=== PATIENT | male | born 1995 | race Caucasian/White ===

== ENCOUNTER 2023-06-13 14:33 | Emergency (ER) | payer BC, SELFPAY ==
--- NOTE | ~2023-06-13 | XR_ITS ---
[id number] DATE: 06/13/2023 15:13 INDICATION: Fall. Posterior lateral right rib pain TECHNIQUE: PA chest. 2 additional views of the right wrist. COMPARISON: None FINDINGS: Normal heart size. No hilar or mediastinal enlargement. No pulmonary infiltrate or consolid ation, pleural effusion or pulmonary vascular congestion or pneumothorax. No right rib fracture or tariq ne destruction is evident. IMPRESSION: Negative Reviewed, dictated and finalized at [facility]. Reviewed, dictated and finalized at [facility]. IMPRESSION: Negative
[2023-06-13 14:46] VITALS: BP 136/87; PULSE 89; RESP 16; TEMP 36.9; O2SAT 97
--- NOTE | 2023-06-13 14:47 | ED.UPPEXIN ---
HPI - Extremity Injury (Upper) General Chief Complaint: Fall Stated Complaint: fall,landed on rt arm Time Seen by Provider: 06/13/23 15:02 Source: patient and RN notes reviewed Mode of arrival: ambulatory Limitations: no limitations History of Present Illness HPI narrative: 28-year-old male presents with concern for right rib pain. He reports he fell 2 weeks ago and had some pain at that time. Reports that was tolerable. Reports a few days ago he was helping a friend move when pain in his ribs became much worse. He denies any bruising, redness, warmth, rash. He denies shortness of breath. He reports his pain is exacerbated with deep breathing or coughing, and some position changes MD complaint: injury to: right (ribs) Related Data Allergies Allergy/AdvReac Type Severity Reaction Status Date / Time No Known Allergies Allergy Mild Unverified 06/27/09 17:10 Review of Systems Review of Systems: CONSTITUTIONAL: Denies malaise, chills, sweats, or fever. SKIN: Denies rash or itching, open skin, laceration, abrasion, redness, warmth, swelling. MUSCULOSKELETAL: Reports right rib pain NEUROLOGIC: Denies numbness, weakness All systems reviewed & are unremarkable except as noted in HPI and below PMFSH Social History Social History Alcohol intake: current Comments At time of signature, agree with nursing past medical, surgical, social and family history. There is no relevant family history pertinent to the presenting complaint Exam Narrative: GENERAL: Well-appearing, well-nourished, and in no acute distress. HEAD: Normocephalic EYES: PERRLA, sclera clear ENT: Nares clear. Mucous membranes moist. NECK: Supple. CHEST: No respiratory distress. Clear to auscultation. No bony deformities, no asymmetry. Speaks in full sentences. No chest wall tenderness upon palpation HEART: Regular rate and rhythm. No murmur heard. SKIN: Warm, dry, no visible rash, bruising, redness. NEURO: Alert and oriented x3. PSYCH: Normal mood and affect Course Course Emergency Course: Patient is aware of diagnosis, understands and agrees to treatment plan. Anticipatory guidance given. Patient agrees to follow-up as directed and is aware of reasons to seek care at the emergency department. Portions of this record may have been created with voice recognition software Level of Care: Express Care Visit Vital Signs Vital signs: Reviewed. MDM - Extremity Injury (Upper) MDM Narrative Medical decision making narrative: Exam findings and imaging show no acute concerns or changes; patient is non-toxic appearing and is in no distress. Patient is appropriate for outpatient treatment and follow-up. Imaging Data My impression: Images reviewed, interpreted by radiologist, agree, see report. Radiologist's impression: [id number] DATE: 06/13/2023 15:13 INDICATION: Fall. Posterior lateral right rib pain? TECHNIQUE: PA chest. 2 additional views of the right wrist.? COMPARISON: None? FINDINGS: Normal heart size. No hilar or mediastinal enlargement. No pulmonary infiltrate or consolidation, pleural effusion or pulmonary vascular congestion or pneumothorax. No right rib fracture or bone destruction is evident. IMPRESSION: Negative? Reviewed, dictated and finalized at [facility] Critical Care Time Critical Care Time Critical Care Time: No Discharge Plan Discharge Clinical Impression: Chest wall pain Patient Disposition: Home, Self-Care Condition: Stable Instructions: Chest Wall Pain (ED) Additional Instructions: Please follow up with your Primary Care Doctor if symptoms are not improving. Activity as tolerated. Take Motrin 600mg every 6-8 hours with food for the next 2-3 days, take muscle relaxers every 8 hours as needed for muscle spasm- do not drive or make any important decisions while on this medication for it can make you drowsy. You may apply ice followed by heat to the area as needed. If you experience a
== END 2023-06-13 15:35 | disposition home or self-care (01) ==
PROVIDERS: Emergency Provider Nurse Practitioner
DX: R07.89 Other chest pain (principal)
CPT/HCPCS: 71101; 99203; G0463